=== PATIENT | female | born 1980 | race Caucasian/White ===

== ENCOUNTER 2016-12-06 10:25 | Emergency (ER) | payer BC ==
[2016-12-06 10:37] VITALS: BP 120/75; PULSE 86; RESP 16; TEMP 97.8
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
== END 2016-12-06 11:11 | disposition left against medical advice (07) ==
LOC: EC 10:25
DX: M25.512 Pain in left shoulder (principal); G89.18 Other acute postprocedural pain; Z98.890 Other specified postprocedural states; Z79.3 Long term (current) use of hormonal contraceptives; Z79.899 Other long term (current) drug therapy; Z53.20 Procedure and treatment not carried out because of patient's decision for unspecified reasons
CPT/HCPCS: 99283

== ENCOUNTER → 2017-01-24 | Outpatient (CLI) | payer BC ==
--- NOTE | 2017-01-24 23:27 | MR ---
EXAMINATION TYPE: MR knee RT wo con DATE OF EXAM: 01/24/2017 5:15 PM COMPARISON: NONE HISTORY: 36-year-old female with right Knee Pain x 2 Months. TECHNIQUE: Multiplanar, multisequence imaging of the right knee is performed without IV contrast. FINDINGS: ACL, PCL, MCL, and LCL complex are intact. The lateral meniscus is intact and overall lateral compartment articular cartilage volume is maintain ed. There is some degenerative signal within the posterior horn and body of the medial meniscus without c lear signal contacting either articular surface. Overall medial compartment articular cartilage volum e is maintained. Patellofemoral compartment articular cartilage volume is maintained. Extensor mechanism is intact. However, there is prepatellar soft tissue swelling with a wide-based sl iver of fluid measuring 4.1 cm craniocaudal by 5.1 cm wide by 9 mm thick superficial to the patella. In addition, there is focal increased signal within the suprapatellar fat pad. Normal popliteal artery anatomy and muscle bulk. No suspicious bone marrow replacement. IMPRESSION: 1. No cruciate/collateral ligament tear. There is some degenerative signal in the posterior horn and body of the medial meniscus without discrete meniscal tear. 2. Focal edema within the suprapatellar fat pad. This can be seen in the setting of fat pad impingeme nt syndrome. 3. Anterior soft tissue swelling with mild prepatellar bursitis.
== END | disposition home or self-care (01) ==
LOC: RADMRIMAIN 16:39
PROVIDERS: ATTEND Internal Medicine
DX: M70.41 Prepatellar bursitis, right knee (principal); M79.4 Hypertrophy of (infrapatellar) fat pad; M79.89 Other specified soft tissue disorders

== ENCOUNTER → 2017-12-25 | Outpatient (CLI) | payer OTHER ==
--- NOTE | 2017-12-25 08:47 | MR ---
EXAMINATION TYPE: MR knee RT wo con DATE OF EXAM: 12/25/2017 COMPARISON: 01/24/2017 HISTORY: Right knee pain TECHNIQUE: Multiplanar, multisequence images of the knee is performed without IV contrast. FINDINGS: MEDIAL MENISCUS: Anterior is intact without tear. Myxoid degeneration posterior horn medial meniscus without evidence for tear. LATERAL MENISCUS: Anterior and posterior horns are intact without tear. CRUCIATE LIGAMENTS: The anterior and posterior cruciate ligaments are intact and unremarkable. COLLATERAL LIGAMENTS: The medial collateral ligament and lateral collateral ligament complex are inta ct and unremarkable. EXTENSOR MECHANISM: Visualized quadriceps and patellar tendons are intact. EFFUSION: No significant suprapatellar joint effusion. POPLITEAL CYST: No popliteal/keller cyst. TRICOMPARTMENT SPACES: Intact CARTILAGE: Intact BONE MARROW SIGNAL: No focal abnormal marrow signal is appreciated. OTHER: Resolution of previously noted prepatellar bursitis. IMPRESSION: 1. Myxoid degeneration posterior horn medial meniscus without evidence for tear. 2. Resolution of previously noted prepatellar bursitis.
--- NOTE | 2017-12-25 08:54 | MR ---
EXAMINATION TYPE: MR shoulder LT wo con DATE OF EXAM: 12/25/2017 8:30 AM COMPARISON: NONE HISTORY: Left shoulder pain TECHNIQUE: Multiplanar multispin echo imaging of the left shoulder was performed. There is extensive metallic artifact resulting in the examination being nondiagnostic FINDINGS: Rotator cuff : Poor visualization Bursa: Poor visualization. Musculature: Limited visualization. Acromioclavicular joint : There are mild degenerative changes of the acromioclavicular joint. There is no anterior or lateral acromial downsloping. Osseous structures : Limited visualization. Long biceps tendon : Limited visualization. Glenohumeral Joint fluid : There is no glenohumeral joint effusion. Cartilage and Bone : Limited visualization. Labrum : There are no SLAP or soft tissue Bankart lesions. No paralabral cysts are seen. OTHER FINDINGS : none IMPRESSION: 1. Significantly Limited study given extensive artifact from previous surgical fixation of proximal h umerus.
== END | disposition home or self-care (01) ==
LOC: RADMRIMAIN 07:10
PROVIDERS: ATTEND Internal Medicine
DX: M25.512 Pain in left shoulder (principal); M25.561 Pain in right knee; Z98.890 Other specified postprocedural states

== ENCOUNTER → 2018-04-17 | Outpatient (CLI) | payer OTHER ==
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
== END | disposition home or self-care (01) ==
LOC: RADCTMAIN 13:15
PROVIDERS: ATTEND Internal Medicine
DX: E23.6 Other disorders of pituitary gland (principal)
CPT/HCPCS: 70450

== ENCOUNTER → 2018-05-16 | Outpatient (CLI) | payer OTHER ==
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
== END | disposition home or self-care (01) ==
LOC: RADMRIMAIN 09:54
PROVIDERS: ATTEND Internal Medicine
DX: R51 Headache (principal)
CPT/HCPCS: 70553; A9581

== ENCOUNTER → 2018-05-18 | Outpatient (CLI) | payer OTHER ==
--- NOTE | 2018-05-18 19:50 | MR ---
EXAMINATION TYPE: MR pituitary wo/w con DATE OF EXAM: 05/18/2018 COMPARISON: MRI brain from [address] brain from April 17, 2018 HISTORY: Headache. TECHNIQUE: Multiplanar, multisequence images of the pituitary gland is performed without and with IV contrast, u tilizing 7 mL intravenous Gadavist . FINDINGS: Correlating with recent CT and MRI there is prominence of the pituitary gland and sella tur cica with bulging into the suprasellar space having concave superior margin measuring 11 mm AP diamet er by 10 mm craniocaudal diameter. Posterior aspect of pituitary gland shows nonenhancing area measur ing 7 mm craniocaudal dimension by 4 mm AP diameter by 8 mm transversely sagittal images 9 and garcía l images 11 and which pituitary microadenoma cannot be excluded in the appropriate clinical setting. Clinical correlation and correlation with lab values is recommended. Pituitary stalk shows normal enhancement in the midline. Optic chiasm is not effaced. Craniocervical junction is maintained. IMPRESSION: As above, clinical and lab correlation advised due to oval-shaped area of nonenhancement in which microadenoma cannot be excluded.
== END ==
LOC: RADMRIMAIN 18:38
PROVIDERS: ATTEND Internal Medicine
DX: R94.02 Abnormal brain scan (principal)
CPT/HCPCS: 70553; A9581

== ENCOUNTER → 2021-05-05 | Outpatient (CLI) | payer OTHER ==
--- NOTE | 2021-05-06 08:04 | XR ---
EXAMINATION TYPE: XR tibia fibula 2 views RT, XR ankle limited 2 views RT DATE OF EXAM: 05/05/2021 COMPARISON: NONE HISTORY: 40-year-old female with pain and laceration to the oneil after fall. M25.571, M79.662 FINDINGS: Tibia/fibula: Some soft tissue swelling noted along the distal half of the leg. No retained radiopaque foreign body . No acute fracture. Ankle: No acute fracture, subluxation, dislocation. Small delineation of the Achilles tendon. Soft tissue sw elling distal leg, anteriorly, and along the medial aspect of the ankle. IMPRESSION (tibia/fibula and ankle): No acute osseous abnormality seen. Soft tissue swelling distal half of the leg and extending along th e medial and anterior aspect of the ankle.
== END ==
LOC: RADXRMAIN 16:02
PROVIDERS: ATTEND Internal Medicine
DX: S81.811A Laceration without foreign body, right lower leg, initial encounter (principal); S99.911A Unspecified injury of right ankle, initial encounter